=== PATIENT | female | born 1975 | race Caucasian/White ===

== ENCOUNTER 2016-10-20 07:55 | Emergency (ER) | payer OTHER ==
--- NOTE | 2016-10-20 09:27 | RAD ---
Indication: Headache for one month. Difficulty focusing and sleeping. Intermittent dizziness. Comparison: No relevant prior exams available on the [facility] PACS for comparison. Technique: Noncontrast CT vertex of skull through foramen magnum. Report: The sulci, ventricles, and basal cisterns are normal for age. Wilson matter white matter differentiation is preserved without evidence for edema. No intra or extra axial hemorrhage, mass, or fluid collection detected. Unremarkable visualized orbital contents. Unremarkable calvarium and skull base. Unremarkable scalp. The visualized paranasal sinuses and mastoid air spaces are clear. IMPRESSION: Negative unenhanced CT of the brain.
[2016-10-20 10:11] VITALS: BP 152/104
--- NOTE | 2016-10-20 11:59 | UC ---
Tremaine Adamson Matthew, scribed for Bruna Ashton MD on 10/20/16 at 0842 . Headache HPI - HPI Summary HPI Summary: A 41 y/o female presents to with a progressively worsening h/a x approx one month. This encompasses much of her head. However, she pointedly has R parietal-temp sharp pain as well. + intermittent, wakes her up at night. She is unclear on the details / timing (how long they last, if repetitive / sequential). Nothing associated makes it better / worse. Of particular concern, Ms. Robison repoorts that she has been having trouble with word finding. The thoughts are in her head, but unable to get them out in an organized fashion. "The words sometimes come out backwards." Also notes occasional unsteady gait when headaches are bad. Denies specific p/d/ or local weakness. Feels generally weak all over. She's been trying Excedrin tension headache and ibuprofen with minimal relief. The patient hasn't been taking her anti-hypertensive medications since 05/2017. She had a cardiac work-up approximately a year ago, which returned normal. SHx includes hysterectomy for CA. Ms. Robison says that she emailed her PCP of her sx, and he suggested that she come here for evalutation, prompting today's visit. - History Of Current Complaint Chief Complaint: UCHeadache Stated Complaint: HEADACHE,STABBING HEAD PAIN Time Seen by Provider: 10/20/16 08:24 Hx Obtained From: Patient Hx Last Menstrual Period: IMPLANT-NONE ?: No Onset/Duration: Lasting Weeks - month, Still Present Onset Of Symptoms: Still Present Initially Headache Was: Moderate Currently Pain Is: Moderate Pain Intensity: 5 Pain Scale Used: 0-10 Numeric Timing: Constant Character: Sharp, Dull, Throbbing Aggravating Factor: Nothing Allevating Factors: Nothing - Allergies/Home Medications Allergies/Adverse Reactions: Allergies Allergy/AdvReac Type Severity Reaction Status Date / Time adhesive AdvReac Mild rash with Uncoded 11/28/15 09:36 terminal superintendent application Home Medications: Home Medications Acetaminophen-Caffeine [Excedrin Tension Headache 500-65 mg] 10/20/16 [History] PMH/Surg Hx/FS Hx/Imm Hx Previously Healthy: Yes Endocrine History Of: Denies: Diabetes, Thyroid Disease, Hyperthyroidism, Hypothyroidism, Dyslipidemia Cardiovascular History Of: Reports: Hypertension - no medication Denies: Cardiac Disorders, Pacemaker/ICD, Myocardial Infarction, Congestive Heart Failure, Atrial Fibrillation, Deep Vein Thrombosis, Bleeding Disorders Respiratory History Of: Denies: COPD, Asthma, Bronchitis, Pneumonia, Pulmonary Embolism GI/ History Of: Denies: Gastroesophageal Reflux, Ulcer, Gastrointestinal Bleed, Gall Bladder Disease, Kidney Stones, Diverticulitis, Renal Disease, Urosepsis Neurological History Of: Denies: TIA, CVA, Dementia, Seizures, Migraine Psychological History Of: Denies: Anxiety, Depression, Bipolar Disorder, Schizophrenia, Post Traumatic Stress Disorder Cancer History Of: Denies: Lung Cancer, Colorectal Cancer, Breast Cancer, Prostate Cancer, Cervical Cancer - Surgical History Surgical History: Yes Surgery Procedure, Year, and Place: left OOPHORECTOMY 2004. csection 2006,. right foot X 3,. 2009- REPAIR OF TORSION OF OVARY. 2002-EXPLORATORY ABDOMEN. 07/2015 COMPLETE HYSTERECTOMY - Family History Known Family History: Positive: Hypertension Family History: No FHx of CA or CVA - Social History Alcohol Use: Occasionally Substance Use Type: None Smoking Status (MU): Never Smoked Tobacco Have You Smoked in the Last Year: No - Immunization History Most Recent Influenza Vaccination: 04/21 Review of Systems Constitutional: Fatigue Skin: Negative Eyes: Negative ENT: Negative Respiratory: Negative Cardiovascular: Negative Gastrointestinal: Negative Genitourinary: Negative Motor: Negative Neurovascular: Negative Musculoskeletal: Negative Neurological: Headache Psychological: Negative All Other Systems Reviewed And Are Negative: Yes Physical Exam Triage Information Reviewed: Yes Appearance: Well-Appearing, No Pain Distress, Well-Nourished Vital Signs: Initial Vital Signs Temp 99.0 F 10/20/16 08:11 Pulse 70 10/20/16 08:11 Resp 18 10/20/16 08:11 BP 155/110 10/20/16 08:11 Pulse Ox 100 10/20/16 08:11 Vital Signs Reviewed: Yes Eyes: Positive: Conjunctiva Clear, Other: - extra occular movements are present but doesnt look inward secondary to previous eye surgery ENT: Positive: Normal ENT inspection Neck exam: Normal Neck: Positive: Supple, Nontender, No Lymphadenopathy Respiratory: Positive: Chest non-tender, Lungs clear, Normal breath sounds, No respiratory distress Cardiovascular: Positive: RRR, No Murmur, Pulses Normal, Brisk Capillary Refill Abdomen Description: Positive: Nontender, No Organomegaly, Soft Bowel Sounds: Positive: Present Musculoskeletal Exam: Normal Musculoskeletal: Positive: Strength Intact Neurological Exam: Normal, Other - CN 1 - 12 intact, incl + sens alcohol swab. 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 DTR's 2+ equal P / BR / R Moves all ext's. Distal sens LT present x 4 ext's No reported B/B issues. Gait steady. Psychological Exam: Normal - conversing easily and appropriately Skin Exam: Normal - no visible or reported rash Diagnostics - Radiology Brain CT Xray Interpretation: No Acute Changes - IMPRESSION: Negative unenhanced CT of the brain. Radiology Interpretation Completed By: Radiologist Headache Course/Dx - Course Course Of Treatment: No new problems in the CCC. CT brain noncont report unremarkable. D/w Dr. Chery, neurology. He recommends ED transfer to obtain MRI with / without gd. I spoke Jodie Ortega NP, Emerg Dept. D/w patient, she expresses understanding and agreement. EMS offered and encouraged, but pt declines. AMA for EMS signed. - Differential Dx/Diagnosis Provider Diagnoses: Headache. Word finding difficulty. HTN - Physician Notifications Discussed Patient Care With: Dr. Roman (Neurology) at 09:40 -- Notified of patient's history and recommends MRI with and without gadolinium. Jordan (PA) at 10:02 -- Notified of patient's history and accepts transfer of the patient. Discharge - Discharge Plan Condition: Guarded Disposition: TRANS HIGHER LVL OF CARE FAC Referrals: Mj Shafer MD [Primary Care Provider] - The documentation as recorded by the Tremaine patiño Matthew accurately reflects the service I personally performed and the decisions made by me, Bruna Ashton MD.
== END 2016-10-20 10:16 | disposition short-term general hospital (02) ==
LOC: UCEAST 07:55
DX: R51 Headache (principal); R47.9 Unspecified speech disturbances; R53.83 Other fatigue; I10 Essential (primary) hypertension; Z90.710 Acquired absence of both cervix and uterus; Z91.048 Other nonmedicinal substance allergy status
CPT/HCPCS: 70450; 81003; 87086; 99212; G0463

== ENCOUNTER → 2016-10-20 10:40 | Emergency (ER) | payer OTHER ==
[~2016-10-20 10:40] MED LIST: Gadoteridol* (CONTRAST) 279.3 MG/ML 10 ML IV ONE
--- NOTE | 2016-10-20 11:47 | ED ---
Neurological HPI - History of Current Complaint Chief Complaint: EDNeurologicalDeficit Stated Complaint: HEADACHE Time Seen by Provider: 10/20/16 10:56 Hx Last Menstrual Period: IMPLANT-NONE Pain Intensity: 4 - Allergy/Home Medications Allergies/Adverse Reactions: Allergies Allergy/AdvReac Type Severity Reaction Status Date / Time adhesive AdvReac Mild rash with Uncoded 11/28/15 09:36 mcfp application PMH/Surg Hx/FS Hx/Imm Hx Endocrine/Hematology History: Denies: Hx Diabetes, Hx Sickle Cell Disease, Hx Thyroid Disease Cardiovascular History: Reports: Hx Angina, Hx Hypertension - no medication Denies: Hx Congestive Heart Failure, Hx Deep Vein Thrombosis, Hx Myocardial Infarction, Hx Pacemaker/ICD, Other Cardiovascular Problems/Disorders Respiratory History: Denies: Hx Asthma, Hx Chronic Obstructive Pulmonary Disease (COPD), Hx Lung Cancer, Hx Pneumonia, Hx Pulmonary Embolism, Other Respiratory Problems/ Disorders GI History: Reports: Other GI Disorders - 2 yr history abdominal pain, constant dull with occassional increase in dis Denies: Hx Cirrhosis, Hx Gall Bladder Disease, Hx Gastrointestinal Bleed, Hx Ulcer, Hx Urosepsis History: Denies: Hx Kidney Stones, Hx Renal Disease Musculoskeletal History: Reports: Other Musculoskeletal History - SESAMOIDITIS RIGHT FOOT Denies: Hx Rheumatoid Arthritis, Hx Osteoporosis Sensory History: Denies: Hx Contacts or Glasses, Hx Hearing Aid Opthamlomology History: Denies: Hx Contacts or Glasses Neurological History: Denies: Hx Dementia, Hx Migraine, Hx Seizures, Hx Transient Ischemic Attacks (TIA), Other Neuro Impairments/Disorders Psychiatric History: Denies: Hx Anxiety, Hx Depression, Hx Schizophrenia, Hx Bipolar Disorder - Cancer History Cancer Type, Location and Year: ovarian CA scheduled for sx 07/23/15 Hx Chemotherapy: No Hx Radiation Therapy: No - Surgical History Surgery Procedure, Year, and Place: left OOPHORECTOMY 2004. csection 2006,. right foot X 3,. 2008- REPAIR OF TORSION OF OVARY. 2002-EXPLORATORY ABDOMEN. 07/2015 COMPLETE HYSTERECTOMY Hx Anesthesia Reactions: No Infectious Disease History: Denies: Hx Clostridium Difficile, Hx Hepatitis, Hx Human Immunodeficiency Virus (HIV), Hx of Known/Suspected MRSA, Hx Shingles, Hx Tuberculosis, Hx Known/ Suspected VRE, Hx Known/Suspected VRSA, History Other Infectious Disease, Traveled Outside the [place] in Last 30 Days - Family History Known Family History: Positive: None, Hypertension - Social History Alcohol Use: Occasionally Substance Use Type: Reports: None Smoking Status (MU): Never Smoked Tobacco Have You Smoked in the Last Year: No Physical Exam Vital Signs On Initial Exam: Initial Vitals Temp Pulse Resp BP Pulse Ox 98.2 F 70 18 182/97 100 10/20/16 10:41 10/20/16 10:41 10/20/16 10:41 10/20/16 10:41 10/20/16 10:41 Diagnostics - Vital Signs Vital Signs Temp Pulse Resp BP Pulse Ox 10/20/16 11:33 97 10/20/16 11:02 75 19 143/98 98 10/20/16 10:41 98.2 F 70 18 182/97 100 - Laboratory Lab Statement: Any lab studies that have been ordered have been reviewed, and results considered in the medical decision making process.
[2016-10-20 11:54] LABS: Hematocrit 39 % (35-47); Hemoglobin 13.4 g/dl (12.0-16.0); Mean Corpuscular HGB Conc 34 g/dl (31-36); Mean Corpuscular Hemoglobin 31 pg (27-31); Mean Corpuscular Volume 90 fL (80-97); Mean Platelet Volume 9 um3 (7.4-10.4); Red Blood Count 4.37 10^6/ul (4.0-5.4); Red Cell Distribution Width 13 % (10.5-15); White Blood Count 4.6 10^3/ul (3.5-10.8)
[2016-10-20 12:11] LABS: Albumin 4.1 g/dL (3.2-5.2); BUN/Creatinine Ratio 19.8 (8-20); Calcium 9.1 mg/dL (8.6-10.3); EGFR African American 99.7 (>60); EGFR Non-African American 77.5 (>60); Globulin 2.6 g/dL (2-4); Potassium 3.9 mmol/L (3.5-5.0); Total Bilirubin 1.2 mg/dL (0.2-1.0); Total Protein 6.7 g/dL (6.4-8.9)
[2016-10-20 12:12] LABS: Urine Bilirubin Negative (Negative); Urine Glucose Negative (Negative); Urine Nitrite Negative (Negative)
--- NOTE | 2016-10-20 14:57 | RAD ---
Indication: Headaches x1 month, history of ovarian cancer. Image sequences: Sagittal and axial T1, axial T2, FLAIR, diffusion and susceptibility weighted images of the brain were obtained. Correlation with prior CT done earlier the same day. Ventricular structures are midline. No midline shift is noted. The extra-axial spaces are unremarkable. There is no evidence of intracranial mass or hemorrhage. FLAIR images demonstrates no evidence of vasogenic edema. Diffusion weighted images demonstrates no restriction of diffusion. Susceptibility weighted images demonstrates no evidence of residual hemosiderin. Postcontrast images demonstrates no evidence of abnormally enhancing lesions. Mastoid air cells and paranasal sinuses are otherwise unremarkable. Parotid glands are otherwise unremarkable. IMPRESSION: No intracranial lesion is identified.
[2016-10-20 15:34] VITALS: BP 147/103
[2016-10-20 17:56] LABS: Erythrocyte Sed Rate 9 mm/Hr (0-14)
== END | disposition home or self-care (01) ==
LOC: ED 10:40
DX: R51 Headache (principal)
CPT/HCPCS: 36415; 70553; 80053; 81003; 83605; 84484; 84702; 85025; 85610; 85652; 93005; 99281; A9579

== ENCOUNTER 2016-11-14 16:25 | Emergency (ER) | payer OTHER ==
[2016-11-14 16:30] VITALS: BP 137/78
--- NOTE | 2016-11-14 17:05 | UC ---
Throat Pain/Nasal Diana HPI - HPI Summary HPI Summary: Got sick with nasal diana, ST, fever, cough 2 weeks ago. Was improving gradually (though cough is still bad) until the last 2-3 days when she has had focal sinus pain around R eye and R ear. Denies temps above 100F or trouble breathing. - History of Current Complaint Chief Complaint: UCRespiratory Stated Complaint: SINUS COMPLAINT Time Seen by Provider: 11/14/16 16:36 Hx Obtained From: Patient Hx Last Menstrual Period: Hysterectomy ?: No Onset/Duration: Gradual Onset, Lasting Weeks Severity: Moderate Cough: Productive Associated Signs & Symptoms: Positive: Sinus Discomfort, Nasal Discharge. Negative: Fever, Vomiting, Rash - Allergies/Home Medications Allergies/Adverse Reactions: Allergies Allergy/AdvReac Type Severity Reaction Status Date / Time adhesive AdvReac Mild rash with Uncoded 11/14/16 16:29 skilled nursing application Home Medications: Home Medications Lisinopril TAB* [Prinivil TAB 10 MG*] 10 mg PO DAILY 11/14/16 [History Confirmed 11/14/16] Rizatriptan Benzoate [Maxalt-Stereotyper Helper] 10 mg PO DAILY PRN 11/14/16 [History Confirmed 11/14/16] PMH/Surg Hx/FS Hx/Imm Hx Previously Healthy: Yes Cancer History: Other - ovarian Other Cancer History: ovarian - Surgical History Surgical History: Yes Surgery Procedure, Year, and Place: left OOPHORECTOMY 2004. csection 2006,. right foot X 3,. 2009- REPAIR OF TORSION OF OVARY. 2002-EXPLORATORY ABDOMEN. 07/2015 COMPLETE HYSTERECTOMY - Family History Known Family History: Positive: None, Hypertension Family History: No FHx of CA or CVA - Social History Alcohol Use: Occasionally Substance Use Type: None Smoking Status (MU): Never Smoked Tobacco Have You Smoked in the Last Year: No - Immunization History Most Recent Influenza Vaccination: 04/21 Review of Systems Constitutional: Fever Skin: Negative Eyes: Negative ENT: Sore Throat, Nasal Discharge Respiratory: Cough Cardiovascular: Negative Gastrointestinal: Negative Genitourinary: Negative Motor: Negative Neurovascular: Negative Musculoskeletal: Negative Neurological: Negative Psychological: Negative All Other Systems Reviewed And Are Negative: Yes Physical Exam Triage Information Reviewed: Yes Appearance: Well-Appearing, No Pain Distress, Well-Nourished Vital Signs: Initial Vital Signs Temp 97.7 F 11/14/16 16:29 Pulse 80 11/14/16 16:29 Resp 16 11/14/16 16:29 BP 137/78 11/14/16 16:29 Pulse Ox 97 11/14/16 16:29 Vital Signs Reviewed: Yes Eye Exam: Normal Eyes: Positive: Conjunctiva Clear ENT: Positive: Hearing grossly normal, Nasal congestion, TMs normal, Other: - R maxillary sinus tenderness. Negative: Nasal drainage, Tonsillar swelling, Tonsillar exudate Dental Exam: Normal Neck exam: Normal Neck: Positive: Supple, Nontender, No Lymphadenopathy Respiratory Exam: Other - freq cough Respiratory: Positive: Chest non-tender, Lungs clear, Normal breath sounds, No respiratory distress, No accessory muscle use Cardiovascular Exam: Normal Cardiovascular: Positive: RRR, No Murmur Musculoskeletal Exam: Normal Neurological Exam: Normal Neurological: Positive: Alert Psychological Exam: Normal Skin Exam: Normal Throat Pain/Nasal Course/Dx - Differential Dx/Diagnosis Provider Diagnoses: acute bacterial R maxillary sinusitis. URI, likely viral Discharge - Discharge Plan Condition: Stable Disposition: HOME Prescriptions: Amoxicillin/Clavulanate TAB* [Augmentin TAB 875*] 875 mg PO BID #14 tab Patient Education Materials: Sinusitis (ED) Referrals: Mj Shafer MD [Primary Care Provider] - Additional Instructions: Bacterial sinusitis is treated with antibiotics, though they are not always helpful. Often, expectorants (to thin the sinus mucous) or decongestants (to reduce swelling) are prescribed as well. Avoid chemical fumes, pollens, dusts, and smoke (especially cigarette smoke ). Keep the air humidified in your bedroom and work area and take plenty of liquids by mouth. This condition can be serious if the infection spreads. If your symptoms worsen, or if you develop severe headache, high fever, trouble breathing, stiff neck, or a rash, you must call the doctor or return for re-evaluation. SINUS RINSES HAVE BEEN SHOWN TO HELP IMPROVE SYMPTOMS AND SHORTEN THE DURATION OF MILD TO MODERATE SINUSITIS. [employer] MAKES A SQUEEZE BOTTLE THAT YOU CAN USE OVER THE SINK OR IN THE SHOWER. USE ONLY SALINE, AND REPEAT UP TO EVERY 2 HOURS DESIRED. ONLY USE DISTILLED WATER TO MIX UP SALINE, DO NOT USE TAP WATER.
== END 2016-11-14 17:04 | disposition home or self-care (01) ==
LOC: UCEAST 16:25
DX: J01.00 Acute maxillary sinusitis, unspecified (principal); B96.89 Other specified bacterial agents as the cause of diseases classified elsewhere
CPT/HCPCS: 99212; G0463

== ENCOUNTER 2017-10-14 07:35 | Emergency (ER) | payer OTHER ==
[2017-10-14 08:26] VITALS: BP 128/78
--- NOTE | 2017-10-14 09:02 | UC ---
Throat Pain/Nasal Vish HPI - HPI Summary HPI Summary: 42 yo WF c/o sore throat x 1 day, her 3 daughters have similar sx, denies f/c/n/ v/d, cough or nasal congestion - History of Current Complaint Chief Complaint: UCRespiratory Stated Complaint: SORE THROAT Time Seen by Provider: 10/14/17 08:30 Hx Obtained From: Patient Hx From Patient Unobtainable Due To: Other Hx Last Menstrual Period: Hysterectomy ?: No Severity: Moderate Pain Intensity: 2 - Allergies/Home Medications Allergies/Adverse Reactions: Allergies Allergy/AdvReac Type Severity Reaction Status Date / Time adhesive AdvReac Mild rash with Uncoded 10/14/17 08:20 termination clerk application PMH/Surg Hx/FS Hx/Imm Hx Cardiovascular History: Hypertension - Surgical History Surgical History: Yes Surgery Procedure, Year, and Place: left OOPHORECTOMY 2004. csection 2006,. right foot X 3,. 2008- REPAIR OF TORSION OF OVARY. 2002-EXPLORATORY ABDOMEN. 07/2015 COMPLETE HYSTERECTOMY - Family History Known Family History: Positive: None, Hypertension Family History: No FHx of CA or CVA - Social History Alcohol Use: Occasionally Substance Use Type: None Smoking Status (MU): Never Smoked Tobacco Have You Smoked in the Last Year: No - Immunization History Most Recent Influenza Vaccination: 04/21 Review of Systems Constitutional: Negative Skin: Negative Eyes: Negative ENT: Sore Throat Respiratory: Negative Cardiovascular: Negative Gastrointestinal: Negative Genitourinary: Negative Motor: Negative Neurovascular: Negative Musculoskeletal: Negative Neurological: Negative Psychological: Negative All Other Systems Reviewed And Are Negative: Yes Physical Exam Triage Information Reviewed: Yes Vital Signs: Initial Vital Signs Temp 36.6 C 10/14/17 08:22 Pulse 63 10/14/17 08:22 Resp 16 10/14/17 08:22 BP 128/78 10/14/17 08:22 Pulse Ox 100 10/14/17 08:22 Eye Exam: Normal ENT Exam: Normal ENT: Positive: Pharynx normal, TMs normal, Uvula midline. Negative: Pharyngeal erythema, Nasal congestion, Nasal drainage, Tonsillar swelling, Tonsillar exudate, Hoarse voice, Sinus tenderness Dental Exam: Normal Neck exam: Normal Neck: Positive: 1 Respiratory Exam: Normal Cardiovascular Exam: Normal Abdominal Exam: Normal Musculoskeletal Exam: Normal Neurological Exam: Normal Psychological Exam: Normal Skin Exam: Normal Throat Pain/Nasal Course/Dx - Course Course Of Treatment: rapid strep neg - Differential Dx/Diagnosis Provider Diagnoses: pharyngitis Discharge - Sign-Out/Discharge Documenting (check all that apply): Discharge/Admit/Transfer - Discharge Plan Condition: Stable Disposition: HOME Patient Education Materials: Pharyngitis (ED) Referrals: Mj Shafer MD [Primary Care Provider] - - Billing Disposition and Condition Condition: STABLE Disposition: HOME
== END 2017-10-14 09:16 | disposition home or self-care (01) ==
LOC: UCCORT 07:35
DX: J02.9 Acute pharyngitis, unspecified (principal); I10 Essential (primary) hypertension
CPT/HCPCS: 87651; 99211; G0463